=== PATIENT | female | born 1995 | race Caucasian/White ===

== ENCOUNTER 2020-03-15 20:21 | Emergency (ER) | payer BC ==
[2020-03-15] MEDS ORDERED: Ketorolac 60 MG/2 ML SDV IM ONE (22:28)
--- NOTE | 2020-03-15 22:34 | EDM.PDOC ---
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 has had back pain in past and will go to chiropractor took ibuprofen OTC x 2 earlier today without benefit scheduled to work 7a-7p for tonight and tomorrow night, then off for 2 days - Related Data Allergies Allergy/AdvReac Type Severity Reaction Status Date / Time seasonal Allergy Other Uncoded 03/15/20 21:20 ED ROS GENERAL - Review of Systems Review Of Systems: See Below Constitutional: Reports: No Symptoms HEENT: Reports: No Symptoms Respiratory: Reports: No Symptoms Cardiovascular: Reports: No Symptoms Endocrine: Reports: No Symptoms GI/Abdominal: Reports: No Symptoms : Reports: No Symptoms Musculoskeletal: Reports: Back Pain Skin: Reports: No Symptoms Neurological: Reports: No Symptoms Psychiatric: Reports: No Symptoms Hematologic/Lymphatic: Reports: No Symptoms Immunologic: Reports: No Symptoms ED EXAM, UPPER BACK/NECK PAIN - Physical Exam Exam: See Below Exam Limited By: No Limitations General Appearance: Alert, WD/WN, Mild Distress Head Exam: Atraumatic, Normocephalic Neck Exam: Non-Tender, Full Range of Motion, Normal Alignment, Normal Inspection Cardiovascular/Respiratory: Regular Rate, Rhythm Back Exam: Other (sitting rather stiffly, no spasm, neck NT, has tender across upper back, R>L, mainly over rhomboids altho also over scapula, mid and lower back NT, mildine NT) Course - Orders/Labs/Meds Orders: Active Orders 24 hr Category Date Time Status Ketorolac [Toradol] Med 03/15/20 22:28 Once 60 mg IM ONETIME ONE - Re-Assessments/Exams Free Text/Narrative Re-Assessment/Exam: 03/15/20 22:38 typical overuse syndrome, pt reports she needs to lean forward to work, she can either stand or sit altho neither position is comfortable Departure - Departure Time of Disposition: 22:28 Disposition: Home, Self-Care 01 Condition: Good Clinical Impression: Overuse syndrome, Acute upper back pain, Muscle strain - Discharge Information *PRESCRIPTION DRUG MONITORING PROGRAM REVIEWED*: Yes *COPY OF PRESCRIPTION DRUG MONITORING REPORT IN PATIENT JIGAR: Yes Instructions: Preventing Overuse Injuries, Adult, Preventing Back Pain for New Parents Forms: ED Return to Work/School Form Additional Instructions: For pain and inflammation, starting tomorrow, take ibuprofen 200 mg 4 tabs and acetaminophen 500 mg 2 tabs 3 times a day for one week, longer if needed. Use ice for 10 minutes every 2 hour as needed. Rest today and tomorrow. Improve work ergonomics by trying to keep shoulders over hips and elbows by your side. Move slightly close to your work station if necessary. See a primary care physician in the next 2-3 days. - My Orders Last 24 Hours: My Active Orders 03/15/20 22:28 Ketorolac [Toradol] 60 mg IM ONETIME ONE - Assessment/Plan Last 24 Hours: My Active Orders 03/15/20 22:28 Ketorolac [Toradol] 60 mg IM ONETIME ONE
== END 2020-03-15 22:45 | disposition home or self-care (01) ==
LOC: FB.ED 20:21
DX: S29.012A Strain of muscle and tendon of back wall of thorax, initial encounter (principal); X50.9XXA Other and unspecified overexertion or strenuous movements or postures, initial encounter
CPT/HCPCS: 96372; 99283; J1885

== ENCOUNTER 2020-04-13 17:55 | Emergency (ER) | payer BC ==
--- NOTE | 2020-04-13 18:09 | EDM.PDOC ---
ED HPI GENERAL MEDICAL PROBLEM - General Stated Complaint: L FOOT INJURY Time Seen by Provider: 04/13/20 18:15 Source of Information: Reports: Patient History Limitations: Reports: No Limitations - History of Present Illness INITIAL COMMENTS - FREE TEXT/NARRATIVE: Patient presented to the ED because of left foot pain. The pain is sharp from the heel amd plantar surface of the left foot. There is no recent trauma or injury. Left Feet Pain Score (Numeric/FACES): 10 - Related Data Allergies Allergy/AdvReac Type Severity Reaction Status Date / Time seasonal Allergy stuffy Uncoded 03/16/20 06:41 nose, sometimes sinus infection Home Meds: Home Meds .Otc Allergy Medication 1 dose PO ASDIRECTED PRN 03/16/20 [History] Albuterol [Ventolin HFA] 1 puff INH Q4H PRN 03/16/20 [History] Esomeprazole Magnesium [Nexium 24Hr] 20 mg PO DAILY 03/16/20 [History] Past Medical History Respiratory History: Reports: Asthma Gastrointestinal History: Reports: GERD Hematologic History: Reports: Other (See Below) Other Hematologic History: Factor V Leiden ED ROS GENERAL - Review of Systems Review Of Systems: See Below Constitutional: Reports: No Symptoms HEENT: Reports: No Symptoms Respiratory: Reports: No Symptoms Cardiovascular: Reports: No Symptoms Endocrine: Reports: No Symptoms GI/Abdominal: Reports: No Symptoms : Reports: No Symptoms Musculoskeletal: Reports: Foot Pain Skin: Reports: No Symptoms ED EXAM, GENERAL - Physical Exam Exam: See Below Exam Limited By: No Limitations General Appearance: Alert, No Apparent Distress Eye Exam: Bilateral Eye: Proptosis Nose: Normal Inspection, Normal Mucosa Throat/Mouth: Normal Inspection, Normal Lips, Normal Teeth Head: Atraumatic, Normocephalic Neck: Normal Inspection, Supple, Non-Tender, Full Range of Motion Respiratory/Chest: No Respiratory Distress, Lungs Clear, Normal Breath Sounds Cardiovascular: Normal Peripheral Pulses, Regular Rate, Rhythm GI/Abdominal: Normal Bowel Sounds, Soft, Non-Tender, No Organomegaly Back Exam: Normal Inspection, Full Range of Motion Extremities: Normal Inspection, Other (tendenes left foot) Course - Vital Signs Text/Narrative:: reassurance Last Recorded V/S: Last Vital Signs Temp 36.9 C 04/13/20 20:16 Pulse 78 04/13/20 20:16 Resp 16 04/13/20 20:16 BP 125/71 04/13/20 20:16 Pulse Ox 99 04/13/20 20:16 Departure - Departure Time of Disposition: 18:20 Disposition: Home, Self-Care 01 Condition: Good Clinical Impression: Plantar fasciitis - Discharge Information Instructions: Plantar Fasciitis Referrals: PCP,None [Primary Care Provider] - Forms: ED Department Discharge Additional Instructions: Please read discharge instructions on plantear fasciitis Elevate your foot daily for 7 days Ibuprofen 800 mg 3 times daily for 7 days Buy shoe insoles Follow up with a automotive paint technician after a week if there is no improvement Sepsis Event Note (ED) - Focused Exam Vital Signs: Vital Signs Temp Pulse Resp BP Pulse Ox 04/13/20 20:16 36.9 C 78 16 125/71 99
== END 2020-04-13 18:20 | disposition home or self-care (01) ==
LOC: FB.ED 17:55
DX: M72.2 Plantar fascial fibromatosis (principal); H05.20 Unspecified exophthalmos; J45.909 Unspecified asthma, uncomplicated; K21.9 Gastro-esophageal reflux disease without esophagitis; Z91.09 Other allergy status, other than to drugs and biological substances; Z79.899 Other long term (current) drug therapy
CPT/HCPCS: 99283

== ENCOUNTER 2020-06-27 00:20 | Emergency (ER) | payer BC ==
--- NOTE | 2020-06-27 00:54 | EDM.PDOC ---
ED HPI GENERAL MEDICAL PROBLEM - General Chief Complaint: Allergic Reaction Stated Complaint: ALLERGIC REACTION Time Seen by Provider: 06/27/20 00:30 Source of Information: Reports: Patient History Limitations: Reports: No Limitations - History of Present Illness INITIAL COMMENTS - FREE TEXT/NARRATIVE: Shala comes into [facility] ED with some local oral eruption to the gums, lips and adjacent tissues following some dental work 2 days ago where some dental restorations were performed using acrylic fillings. The eruption appears to be spreading, mildly tender, and does not bleed or involve the tongue or palate. She has reacted to acrylics applied to nails in the past. - Related Data Allergies Allergy/AdvReac Type Severity Reaction Status Date / Time seasonal Allergy stuffy Uncoded 03/16/20 06:41 nose, sometimes sinus infection Home Meds: Home Meds .Otc Allergy Medication 1 dose PO ASDIRECTED PRN 03/16/20 [History] Albuterol [Ventolin HFA] 1 puff INH Q4H PRN 03/16/20 [History] Esomeprazole Magnesium [Nexium 24Hr] 20 mg PO DAILY 03/16/20 [History] Past Medical History Respiratory History: Reports: Asthma Gastrointestinal History: Reports: GERD Musculoskeletal History: Reports: Other (See Below) Other Musculoskeletal History: back pain from back injury. Hematologic History: Reports: Other (See Below) Other Hematologic History: Factor V Leiden Social & Family History - Family History Family Medical History: No Pertinent Family History ED ROS ALLERGIC REACTION - Review of Systems Review Of Systems: Comprehensive ROS is negative, except as noted in HPI. ED EXAM GENERAL NO PERIP PULSE - Physical Exam Exam: See Below Exam Limited By: No Limitations General Appearance: Alert, WD/WN, No Apparent Distress, Obese Eye Exam: Bilateral Eye: EOMI, Normal Inspection, PERRL Ears: Normal External Exam Nose: Normal Inspection Throat/Mouth: Normal Oropharynx, Normal Voice, No Airway Compromise, Other (mild inflammation of buccal mucosa and adjacent lips near fillings of #29, #30, #31) Head: Normocephalic Neck: Normal Inspection Respiratory/Chest: Lungs Clear Cardiovascular: Regular Rate, Rhythm Neurological: Alert, Oriented, CN II-XII Intact, Normal Cognition, No Motor/Sensory Deficits Psychiatric: Normal Affect, Normal Mood Skin Exam: Warm, Intact, No Rash Course - Vital Signs Text/Narrative:: No meds dispensed at ED visit. Last Recorded V/S: Last Vital Signs Temp 36.6 C 06/27/20 00:30 Pulse 92 06/27/20 00:30 Resp 17 06/27/20 00:30 BP 136/69 06/27/20 00:30 Pulse Ox 100 06/27/20 00:30 Departure - Departure Time of Disposition: 00:53 Disposition: Home, Self-Care 01 Condition: Fair Clinical Impression: Mucosal irritation of oral cavity - Discharge Information *PRESCRIPTION DRUG MONITORING PROGRAM REVIEWED*: Not Applicable *COPY OF PRESCRIPTION DRUG MONITORING REPORT IN PATIENT JIGAR: Not Applicable Sepsis Event Note (ED) - Evaluation Sepsis Screening Result: No Definite Risk - Focused Exam Vital Signs: Vital Signs Temp Pulse Resp BP Pulse Ox 06/27/20 00:30 36.6 C 92 17 136/69 100 - Problem List & Annotations (1) Mucosal irritation of oral cavity SNOMED Code(s): 10706143 Code(s): R19.8 - OTH SYMPTOMS AND SIGNS INVOLVING THE DGSTV SYS AND ABDOMEN Status: Acute Annotation/Comment:: I suggested a return visit to the [facility] regarding the restorations and appearance of eruption. Orabase may be of benefit in the interim if available. - Problem List Review Problem List Initiated/Reviewed/Updated: Yes - Assessment/Plan Plan: Follow up with [facility].
== END 2020-06-27 01:09 | disposition home or self-care (01) ==
LOC: FB.ED 00:20
DX: K13.79 Other lesions of oral mucosa (principal); J45.909 Unspecified asthma, uncomplicated; K21.9 Gastro-esophageal reflux disease without esophagitis; Z91.048 Other nonmedicinal substance allergy status; Z79.899 Other long term (current) drug therapy
CPT/HCPCS: 99282; 99283